=== PATIENT | female | born 1985 | race Caucasian/White ===

== ENCOUNTER 2021-08-31 10:19 | Emergency (ER) | payer OTHER ==
[2021-08-31 10:27] VITALS: BP 129/76; TEMP 99.1; BMI 23.8
[2021-08-31] MEDS ORDERED: diphenhydrAMINE HCL 50 MG CAPSULE PO ONE (11:54)
[2021-08-31] MEDS ORDERED: predniSONE 20 MG TABLET (UD) PO ONE (11:54)
[2021-08-31] MEDS ORDERED: FAMOTIDINE 20 MG TABLET PO ONE (11:55)
[2021-08-31] MEDS ORDERED: diphenhydrAMINE HCL 25 MG CAPSULE (FP) PO ONE (12:01)
[2021-08-31] MEDS ORDERED: predniSONE 20 MG TABLET (UD) ONE (12:01)
[2021-08-31] MEDS ORDERED: FAMOTIDINE 20 MG TABLET ONE (12:01)
[2021-08-31 12:31] LABS: BASO % 0.2 % (0-2.0); EOS % 0.1 % (0-4.5); HEMATOCRIT 35.9 % (32.4-45.2); HEMOGLOBIN 12.3 GM/dL (10.7-15.3); LYMPH % 10.3 % (8-40); MCH 30.4 pg (25.7-33.7); MCHC 34.2 g/dl (32.0-36.0); MEAN PLT VOLUME 6.6 fl (7.5-11.1); MONO % 6.3 % (3.8-10.2); NEUT % 83.1 % (42.8-82.8); PLATELET COUNT 245 10^3/uL (134-434); RBC 4.03 M/mm3 (3.60-5.2); RDW 13.1 % (11.6-15.6); WHITE BLOOD COUNT 12.5 K/mm3 (4.0-10.0)
[2021-08-31 12:46] LABS: CALCIUM 8.8 mg/dL (8.5-10.1)
[2021-08-31 12:47] LABS: ALBUMIN 3.6 g/dl (3.4-5.0); BLOOD UREA NITROGEN 8.6 mg/dL (7-18)
[2021-08-31 12:50] LABS: CREATININE 0.7 mg/dL (0.55-1.3)
[2021-08-31 12:52] LABS: BILIRUBIN,TOTAL 0.8 mg/dL (0.2-1); TOT PROT 7.2 g/dl (6.4-8.2)
[2021-08-31 13:03] LABS: EPI CELLS 26 /uL (0-25.1); HYALINE CASTS 2 /uL (0-3.1); PH,URINE 5.5 (5.0-8.0); URINE APPEARANCE CLEAR; URINE BACTERIA 174 /uL (0-1359); URINE BILIRUBIN NEGATIVE (NEGATIVE); URINE COLOR YELLOW; URINE GLUCOSE (UA) NEGATIVE (NEGATIVE); URINE KETONE TRACE (NEGATIVE); URINE LEUK ESTERASE TRACE (NEGATIVE); URINE NITRITE NEGATIVE (NEGATIVE); URINE PROTEIN NEGATIVE (NEGATIVE); URINE WBC 39 /uL (0-25.8)
[2021-08-31 13:04] LABS: HCG,QUALITATIVE URINE Negative
[2021-08-31 13:55] LABS: URINE RBC 86 /uL (0-23.9); YEAST NO SEEN (NEGATIVE)
[2021-08-31 16:28] VITALS: PULSE 84
== END 2021-08-31 16:28 | disposition home or self-care (01) ==
LOC: JER 10:19
DX: L50.9 Urticaria, unspecified (principal); R06.02 Shortness of breath; R07.89 Other chest pain
CPT/HCPCS: 36415; 71046-TC-FY; 71275-TC; 80053; 81003; 84703; 85025; 85379; 93005; 93010; 99285-25; Q9967

== ENCOUNTER 2024-05-23 05:16 | Day surgery (SDC) | payer BC, OTHER ==
[2024-05-19 09:20] VITALS: BMI 26.2
[2024-05-23] MEDS ORDERED: ONDANSETRON 4 MG/2 ML VIAL ONE (15:27)
[2024-05-23] MEDS ORDERED: MIDAZOLAM HCL 2 MG/2 ML SINGLE DOSE VIAL ONE (15:28)
[2024-05-23 16:03] VITALS: RESP 20
[2024-05-23 17:32] VITALS: BP 102/66; PULSE 86; TEMP 97.7
== END 2024-05-23 15:10 | disposition home or self-care (01) ==
LOC: JASU-SURG 05:16
PROVIDERS: ATTEND Urology
PROC: 0TF4XZZ Fragmentation in Left Kidney Pelvis, External Approach (ICD-10-PCS; principal; 2024-05-23 15:31)
DX: N20.0 Calculus of kidney (principal)
CPT/HCPCS: 81025